=== PATIENT | male | born 1965 | race American Indian/Alaskan Native ===

== ENCOUNTER 2019-05-14 10:20 | Emergency (ER) | payer SELFPAY ==
--- NOTE | 2019-05-14 11:33 | Emergency Department Report ---
Blank Doc - Documentation Documentation: 54-year-old male that presents with left sided chest pain and SOB. This initial assessment/diagnostic orders/clinical plan/treatment(s) is/are subject to change based on patient's health status, clinical progression and re- assessment by fellow clinical providers in the ED. Further treatment and workup at subsequent clinical providers discretion. Patient/guardians urged not to elope from the ED as their condition may be serious if not clinically assessed and managed. Initial orders include: 1- Patient sent to MAIN ED for further evaluation and treatment 2- labs 3- EKG 4- CXR
--- NOTE | 2019-05-14 11:57 | XRay Report ---
CHEST 2 VIEWS INDICATION / CLINICAL INFORMATION: Chest Pain. COMPARISON: None available. FINDINGS: SUPPORT DEVICES: None. HEART / MEDIASTINUM: No significant abnormality. LUNGS / PLEURA: No significant pulmonary or pleural abnormality. .No pneumothorax. ADDITIONAL FINDINGS: No significant additional findings. IMPRESSION: 1. No acute findings. Signer Name: Brodie Aparicio MD Signed: 05/14/2019 11:53 AM Workstation Name: [id number]
[2019-05-14 12:14] LABS: Basophils % (Auto) 0.6 % (0.0-1.8); Eosinophils # (Auto) 0.1 K/mm3 (0.0-0.4); Eosinophils % (Auto) 2.8 % (0.0-4.3); Hematocrit 38.7 % (35.5-45.6); Hemoglobin 13.2 gm/dl (11.8-15.2); Lymphocytes # (Auto) 1.5 K/mm3 (1.2-5.4); Lymphocytes % (Auto) 30.5 % (13.4-35.0); Mean Corpuscular HGB Conc 34 % (32-34); Mean Corpuscular Volume 99 fl (84-94); Monocytes # (Auto) 0.4 K/mm3 (0.0-0.8); Platelet Count 160 K/mm3 (140-440); Red Cell Distribution Width 12.9 % (13.2-15.2)
[2019-05-14 12:21] LABS: INR 1.08 (0.87-1.13)
[2019-05-14 12:22] LABS: Partial Thromboplastin Time 24.9 Sec. (24.2-36.6)
[2019-05-14 12:37] LABS: Alanine Aminotransferase 44 units/L (7-56); Albumin 3.8 g/dL (3.9-5); BUN/Creatinine Ratio 13; Blood Urea Nitrogen 14 mg/dL (9-20); Calcium 9.2 mg/dL (8.4-10.2); Hemolysis Index 50
--- NOTE | 2019-05-14 13:11 | Emergency Department Report ---
ED General Adult HPI - General Chief complaint: Chest Pain Stated complaint: CHEST PAIN/WEAK/PAIN Time Seen by Provider: 05/14/19 11:32 Source: patient Mode of arrival: Ambulatory Limitations: No Limitations - History of Present Illness Initial comments: The patient presents to the emergency department with a chief complaint continuous chest pain since Tuesday. Patient states the chest pain is located underneath his breast bone and on the left side of his chest. Patient states he works at a [employer] facility and frequently gets chest pain. Patient denies abdominal pain or shortness of breath. -: Sudden Location: chest Radiation: non-radiation Severity scale (0 -10): 7 Quality: sharp Consistency: constant Improves with: none Worsens with: other (worse with deep breaths.) Associated Symptoms: denies other symptoms Treatments Prior to Arrival: none - Related Data Previous Rx's Medication Instructions Recorded Last Taken Type ALBUTEROL Inhaler (OR & NICU) 2 puff IH Q4HR PRN #1 inhalation 05/14/19 Unknown Rx [ProAir HFA Inhaler] Naproxen [Naprosyn] 500 mg PO BID #20 tablet 05/14/19 Unknown Rx Naproxen [Naprosyn] 500 mg PO BID PRN #20 tablet 05/14/19 Unknown Rx Allergies Allergy/AdvReac Type Severity Reaction Status Date / Time No Known Allergies Allergy Unverified 05/14/19 11:34 ED Review of Systems ROS: Stated complaint: CHEST PAIN/WEAK/PAIN Other details as noted in HPI Comment: All other systems reviewed and negative Constitutional: denies: chills, fever Eyes: denies: eye pain, eye discharge, vision change ENT: denies: ear pain, throat pain Respiratory: denies: cough, shortness of breath, wheezing Cardiovascular: chest pain. denies: palpitations Endocrine: no symptoms reported Gastrointestinal: denies: abdominal pain, nausea, diarrhea Genitourinary: denies: urgency, dysuria Musculoskeletal: denies: back pain, joint swelling, arthralgia Skin: denies: rash, lesions Neurological: denies: headache, weakness, paresthesias Psychiatric: denies: anxiety, depression Hematological/Lymphatic: denies: easy bleeding, easy bruising ED Past Medical Hx - Past Medical History Previous Medical History?: No - Surgical History Past Surgical History?: No - Social History Smoking Status: Current Every Day Smoker Substance Use Type: Alcohol, Marijuana - Medications Home Medications: Home Medications Medication Instructions Recorded Confirmed Last Taken Type ALBUTEROL Inhaler (OR & NICU) 2 puff IH Q4HR PRN #1 inhalation 05/14/19 Unknown Rx [ProAir HFA Inhaler] Naproxen [Naprosyn] 500 mg PO BID #20 tablet 05/14/19 Unknown Rx Naproxen [Naprosyn] 500 mg PO BID PRN #20 tablet 05/14/19 Unknown Rx ED Physical Exam - General Limitations: No Limitations General appearance: alert, in no apparent distress - Head Head exam: Present: atraumatic, normocephalic - Eye Eye exam: Present: normal appearance, PERRL, EOMI - ENT ENT exam: Present: mucous membranes moist - Neck Neck exam: Present: normal inspection - Respiratory Respiratory exam: Present: normal lung sounds bilaterally, chest wall tenderness. Absent: respiratory distress - Cardiovascular Cardiovascular Exam: Present: regular rate, normal rhythm. Absent: systolic murmur, diastolic murmur, rubs, gallop - GI/Abdominal GI/Abdominal exam: Present: soft, normal bowel sounds. Absent: distended, tenderness - Rectal Rectal exam: Present: deferred - Extremities Exam Extremities exam: Present: normal inspection - Back Exam Back exam: Present: normal inspection - Neurological Exam Neurological exam: Present: alert, oriented X3 - Psychiatric Psychiatric exam: Present: normal affect, normal mood - Skin Skin exam: Present: warm, dry, intact, normal color. Absent: rash ED Course Vital Signs 05/14/19 05/14/19 05/14/19 11:32 12:05 12:21 Temperature 98.3 F 98.3 F Pulse Rate 89 72 80 Respiratory 18 21 21 Rate Blood Pressure 115/79 113/90 Blood Pressure 126/82 [Left] O2 Sat by Pulse 100 98 99 Oximetry 05/14/19 05/14/19 05/14/19 12:41 13:00 13:21 Temperature Pulse Rate 79 74 88 Respiratory 18 13 12 Rate Blood Pressure 123/88 117/85 112/78 Blood Pressure [Left] O2 Sat by Pulse 98 98 98 Oximetry 05/14/19 05/14/19 13:41 14:00 Temperature Pulse Rate 73 66 Respiratory 17 15 Rate Blood Pressure 107/78 107/80 Blood Pressure [Left] O2 Sat by Pulse 98 98 Oximetry ED Medical Decision Making - Lab Data Result diagrams: 05/14/19 12:00 05/14/19 12:00 Lab Results 05/14/19 05/14/19 05/14/19 Range/Units 12:00 12:00 12:00 WBC 4.9 (4.5-11.0) K/mm3 RBC 3.90 (3.65-5.03) M/mm3 Hgb 13.2 (11.8-15.2) gm/dl Hct 38.7 (35.5-45.6) % MCV 99 H (84-94) fl MCH 34 H (28-32) pg MCHC 34 (32-34) % RDW 12.9 L (13.2-15.2) % Plt Count 160 (140-440) K/mm3 Lymph % (Auto) 30.5 (13.4-35.0) % [place] % (Auto) 9.0 H (0.0-7.3) % Eos % (Auto) 2.8 (0.0-4.3) % Baso % (Auto) 0.6 (0.0-1.8) % Lymph # 1.5 (1.2-5.4) K/mm3 [place] # 0.4 (0.0-0.8) K/mm3 Eos # 0.1 (0.0-0.4) K/mm3 Baso # 0.0 (0.0-0.1) K/mm3 Seg Neutrophils % 57.1 (40.0-70.0) % Seg Neutrophils # 2.8 (1.8-7.7) K/mm3 PT 13.9 (12.2-14.9) Sec. INR 1.08 (0.87-1.13) APTT 24.9 (24.2-36.6) Sec. D-Dimer (0-234) ng/mlDDU Sodium 138 (137-145) mmol/L Potassium 4.6 (3.6-5.0) mmol/L Chloride 102.8 (98-107) mmol/L Carbon Dioxide 24 (22-30) mmol/L Anion Gap 16 mmol/L BUN 14 (9-20) mg/dL Creatinine 1.1 (0.8-1.5) mg/dL Estimated GFR > 60 ml/min BUN/Creatinine Ratio 13 % Glucose 96 (75-100) mg/dL Calcium 9.2 (8.4-10.2) mg/dL Total Bilirubin 0.40 (0.1-1.2) mg/dL AST 45 H (5-40) units/L ALT 44 (7-56) units/L Alkaline Phosphatase 92 (35-129) units/L Troponin T < 0.010 (0.00-0.029) ng/mL Total Protein 7.4 (6.3-8.2) g/dL Albumin 3.8 L (3.9-5) g/dL Albumin/Globulin Ratio 1.1 % 05/14/19 Range/Units 12:00 WBC (4.5-11.0) K/mm3 RBC (3.65-5.03) M/mm3 Hgb (11.8-15.2) gm/dl Hct (35.5-45.6) % MCV (84-94) fl MCH (28-32) pg MCHC (32-34) % RDW (13.2-15.2) % Plt Count (140-440) K/mm3 Lymph % (Auto) (13.4-35.0) % [place] % (Auto) (0.0-7.3) % Eos % (Auto) (0.0-4.3) % Baso % (Auto) (0.0-1.8) % Lymph # (1.2-5.4) K/mm3 [place] # (0.0-0.8) K/mm3 Eos # (0.0-0.4) K/mm3 Baso # (0.0-0.1) K/mm3 Seg Neutrophils % (40.0-70.0) % Seg Neutrophils # (1.8-7.7) K/mm3 PT (12.2-14.9) Sec. INR (0.87-1.13) APTT (24.2-36.6) Sec. D-Dimer < 135 (0-234) ng/mlDDU Sodium (137-145) mmol/L Potassium (3.6-5.0) mmol/L Chloride (98-107) mmol/L Carbon Dioxide (22-30) mmol/L Anion Gap mmol/L BUN (9-20) mg/dL Creatinine (0.8-1.5) mg/dL Estimated GFR ml/min BUN/Creatinine Ratio % Glucose (75-100) mg/dL Calcium (8.4-10.2) mg/dL Total Bilirubin (0.1-1.2) mg/dL AST (5-40) units/L ALT (7-56) units/L Alkaline Phosphatase (35-129) units/L Troponin T (0.00-0.029) ng/mL Total Protein (6.3-8.2) g/dL Albumin (3.9-5) g/dL Albumin/Globulin Ratio % - EKG Data -: EKG Interpreted by Me EKG shows normal: sinus rhythm Rate: normal - Radiology Data Radiology results: report reviewed - Medical Decision Making Results discussed with patient Critical care attestation.: If time is entered above; I have spent that time in minutes in the direct care of this critically ill patient, excluding procedure time. ED Disposition Clinical Impression: Pleurisy, Chest pain, non-cardiac Disposition: DC-01 TO HOME OR SELFCARE Is pt being admited?: No Does the pt Need Aspirin: No Condition: Stable Instructions: Chest Pain (ED), Pleurisy (ED) Additional Instructions: return if worse Referrals: ESSENCE MICHELE MD [Primary Care Provider] - 3-5 Days [facility] [Provider Group] - 3-5 Days [facility] [Provider Group] - 3-5 Days Forms: Work/School Release Form(ED) Time of Disposition: 14:40
[2019-05-14 15:16] VITALS: BP 119/83
== END 2019-05-14 15:07 | disposition home or self-care (01) ==
LOC: ED 10:20
DX: R07.89 Other chest pain (principal); F17.200 Nicotine dependence, unspecified, uncomplicated; F10.10 Alcohol abuse, uncomplicated; F12.10 Cannabis abuse, uncomplicated; Z79.899 Other long term (current) drug therapy
CPT/HCPCS: 36415; 71046; 80053; 84484; 85025; 85379; 85610; 85730; 93005; 93010

== ENCOUNTER 2019-08-15 10:14 | Emergency (ER) | payer SELFPAY ==
[2019-08-15 10:45] VITALS: BP 107/76
[2019-08-15] MEDS ORDERED: ONDANSETRON 4 MG/2 ML INJ IV ONE (13:48)
[2019-08-15] MEDS ORDERED: SODIUM CHLORIDE 0.9% 1000 ML 1,000 ML IV ONE (13:48)
[2019-08-15] MEDS ORDERED: LIDOCAINE VISCOUS 2% 15 ML ORAL LIQD PO ONE (13:49)
[2019-08-15] MEDS ORDERED: ALUM-MAG HYDROXIDE-SIMETHICONE 200-200-20MG/5ML ORAL LIQD 30 ML PO ONE (13:49)
--- NOTE | 2019-08-15 13:50 | Emergency Department Report ---
ED Abdominal Pain HPI - General Chief Complaint: Abdominal Pain Stated Complaint: ABD PAIN/LIGHT HEADED/N/V Time Seen by Provider: 08/15/19 13:39 Source: patient Mode of arrival: Ambulatory Limitations: No Limitations - History of Present Illness Initial Comments: This is a pleasant 54-year-old male presents the emergency department with chief complaint of 2 days of nausea, vomiting, diarrhea with associated mucousy green stool that started yesterday. He reports the pain is in the epigastrium. Pain is a 6 out of 10 described as burning and cramping. No radiating pain. He reports he has had similar pain in the past and was treated for acid reflux with Carafate. He denies any associated chest pain, shortness of breath, hemoptysis, melena, hematochezia, fever, chills, night sweats, headache, dizziness, blurry vision or any other associated symptoms. He denies any known past medical history, current medication use or known allergies to medications. - Related Data Previous Rx's Medication Instructions Recorded Last Taken Type Albuterol INH(or & Nicu Only) 2 puff IH Q4HR PRN #1 inhalation 05/14/19 Unknown Rx [ProAir HFA Inhaler] Naproxen [Naprosyn] 500 mg PO BID #20 tablet 05/14/19 Unknown Rx Naproxen [Naprosyn] 500 mg PO BID PRN #20 tablet 05/14/19 Unknown Rx Omeprazole 20 mg PO DAILY #30 tab. 08/15/19 Unknown Rx Ondansetron [Zofran Odt] 4 mg PO Q8HR #21 tab.tho 08/15/19 Unknown Rx Promethazine /Codeine 5 ml PO Q6H PRN #60 udc 08/15/19 Unknown Rx [Phenergan/Codeine 6.25-10 mg/5 ml] Sucralfate [Carafate] 1 gm PO ACHS #120 tablet 08/15/19 Unknown Rx Allergies Allergy/AdvReac Type Severity Reaction Status Date / Time No Known Allergies Allergy Unverified 05/14/19 11:34 ED Review of Systems ROS: Stated complaint: ABD PAIN/LIGHT HEADED/N/V Other details as noted in HPI Comment: All other systems reviewed and negative Constitutional: denies: chills, fever Eyes: denies: eye pain, eye discharge, vision change ENT: denies: ear pain, throat pain Respiratory: denies: cough, shortness of breath, wheezing Cardiovascular: denies: chest pain, palpitations Endocrine: no symptoms reported Gastrointestinal: as per HPI, abdominal pain, nausea, vomiting, diarrhea Genitourinary: denies: urgency, dysuria Musculoskeletal: denies: back pain, joint swelling, arthralgia Skin: denies: rash, lesions Neurological: denies: headache, weakness, paresthesias Psychiatric: denies: anxiety, depression Hematological/Lymphatic: denies: easy bleeding, easy bruising ED Past Medical Hx - Past Medical History Previous Medical History?: No - Surgical History Past Surgical History?: No - Social History Smoking Status: Current Every Day Smoker Substance Use Type: Alcohol, Marijuana - Medications Home Medications: Home Medications Medication Instructions Recorded Confirmed Last Taken Type Albuterol INH(or & Nicu Only) 2 puff IH Q4HR PRN #1 inhalation 05/14/19 Unknown Rx [ProAir HFA Inhaler] Naproxen [Naprosyn] 500 mg PO BID #20 tablet 05/14/19 Unknown Rx Naproxen [Naprosyn] 500 mg PO BID PRN #20 tablet 05/14/19 Unknown Rx Omeprazole 20 mg PO DAILY #30 tab.rap.dr 08/15/19 Unknown Rx Ondansetron [Zofran Odt] 4 mg PO Q8HR #21 tab.rapdis 08/15/19 Unknown Rx Promethazine /Codeine 5 ml PO Q6H PRN #60 udc 08/15/19 Unknown Rx [Phenergan/Codeine 6.25-10 mg/5 ml] Sucralfate [Carafate] 1 gm PO ACHS #120 tablet 08/15/19 Unknown Rx ED Physical Exam - General Limitations: No Limitations General appearance: alert, in no apparent distress - Head Head exam: Present: atraumatic, normocephalic - Eye Eye exam: Present: normal appearance - ENT ENT exam: Present: normal exam, normal orophraynx, mucous membranes moist - Neck Neck exam: Present: normal inspection, full ROM. Absent: tenderness, meningismus - Respiratory Respiratory exam: Present: normal lung sounds bilaterally. Absent: respiratory distress, wheezes, rales, rhonchi, stridor - Cardiovascular Cardiovascular Exam: Present: regular rate, normal rhythm, normal heart sounds. Absent: systolic murmur, diastolic murmur, rubs, gallop - GI/Abdominal GI/Abdominal exam: Present: soft, tenderness (Mild epigastric tenderness to palpation, negative Suero sign), normal bowel sounds. Absent: distended, guarding, rebound, rigid - Rectal Rectal exam: Present: deferred - Extremities Exam Extremities exam: Present: normal inspection, full ROM, normal capillary refill. Absent: tenderness, calf tenderness - Back Exam Back exam: Present: normal inspection, full ROM. Absent: tenderness, CVA tenderness (R), CVA tenderness (L) - Neurological Exam Neurological exam: Present: alert, oriented X3 - Psychiatric Psychiatric exam: Present: normal affect, normal mood - Skin Skin exam: Present: warm, dry, intact, normal color. Absent: rash ED Course Vital Signs 08/15/19 10:44 Temperature 97.8 F Pulse Rate 71 Respiratory 16 Rate Blood Pressure 107/76 [Right] O2 Sat by Pulse 99 Oximetry - Reevaluation(s) Reevaluation #1: 08/15/19 15:58 Patient feels much better. Abdominal pain has resolved. Repeat exam shows no tenderness to palpation, guarding or rigidity. Patient educated about importance of avoiding NSAIDs and alcohol and does report that due to his recent cough and cold he has been taking a lot more anti-inflammatories than usual. He does report he had a democrat on Tuesday and drank a lot of alcohol. 08/15/19 15:58 ED Medical Decision Making - Lab Data Result diagrams: 08/15/19 14:22 08/15/19 15:06 Lab Results 08/15/19 08/15/19 08/15/19 Range/Units 14:22 14:22 15:06 WBC 4.3 L (4.5-11.0) K/mm3 RBC 4.00 (3.65-5.03) M/mm3 Hgb 13.6 (11.8-15.2) gm/dl Hct 40.3 (35.5-45.6) % MCV 101 H (84-94) fl MCH 34 H (28-32) pg MCHC 34 (32-34) % RDW 12.7 L (13.2-15.2) % Plt Count 196 (140-440) K/mm3 Add Manual Diff Complete Total Counted 100 Seg Neuts % (Manual) 51.0 (40.0-70.0) % Band Neutrophils % 0 % Lymphocytes % (Manual) 36.0 H (13.4-35.0) % Reactive Lymphs % (Man) 0 % Monocytes % (Manual) 9.0 H (0.0-7.3) % Eosinophils % (Manual) 1.0 (0.0-4.3) % Basophils % (Manual) 2.0 H (0.0-1.8) % Metamyelocytes % 1.0 % Myelocytes % 0 % Promyelocytes % 0 % Blast Cells % 0 % Nucleated RBC % Not Reportable Seg Neutrophils # Man 2.2 (1.8-7.7) K/mm3 Band Neutrophils # 0.0 K/mm3 Lymphocytes # (Manual) 1.5 (1.2-5.4) K/mm3 Abs React Lymphs (Man) 0.0 K/mm3 Monocytes # (Manual) 0.4 (0.0-0.8) K/mm3 Eosinophils # (Manual) 0.0 (0.0-0.4) K/mm3 Basophils # (Manual) 0.1 (0.0-0.1) K/mm3 Metamyelocytes # 0.0 K/mm3 Myelocytes # 0.0 K/mm3 Promyelocytes # 0.0 K/mm3 Blast Cells # 0.0 K/mm3 WBC Morphology Not Reportable Hypersegmented Neuts Not Reportable Hyposegmented Neuts Not Reportable Hypogranular Neuts Not Reportable Smudge Cells Not Reportable Toxic Granulation Not Reportable Toxic Vacuolation Not Reportable Dohle Bodies Not Reportable Pelger-Huet Anomaly Not Reportable Dusty Rods Not Reportable Platelet Estimate Consistent w auto Clumped Platelets Not Reportable Plt Clumps, EDTA Not Reportable Large Platelets Few Giant Platelets Not Reportable Platelet Satelliting Not Reportable Plt Morphology Comment Not Reportable RBC Morphology Not Reportable Dimorphic RBCs Not Reportable Polychromasia Rare Hypochromasia Not Reportable Poikilocytosis Not Reportable Anisocytosis Not Reportable Microcytosis Not Reportable Macrocytosis Few Spherocytes Not Reportable Pappenheimer Bodies Not Reportable Sickle Cells Not Reportable Target Cells Not Reportable Tear Drop Cells Not Reportable Ovalocytes Not Reportable Helmet Cells Not Reportable Lamar-[place] Bodies Not Reportable [place] Rings Not Reportable Galvin Cells Not Reportable Bite Cells Not Reportable Crenated Cell Not Reportable Elliptocytes Not Reportable Acanthocytes (Spur) Not Reportable Rouleaux Not Reportable Hemoglobin C Crystals Not Reportable Schistocytes Not Reportable Malaria parasites Not Reportable Juan Carlos Bodies Not Reportable Hem Pathologist Commnt No Sodium 137 (137-145) mmol/L Potassium 5.3 H 5.2 H (3.6-5.0) mmol/L Chloride 100.3 (98-107) mmol/L Carbon Dioxide 26 (22-30) mmol/L Anion Gap 16 mmol/L BUN 23 H (9-20) mg/dL Creatinine 1.0 (0.8-1.5) mg/dL Estimated GFR > 60 ml/min BUN/Creatinine Ratio 23 % Glucose 84 (75-100) mg/dL Calcium 9.5 (8.4-10.2) mg/dL Total Bilirubin 0.40 (0.1-1.2) mg/dL Direct Bilirubin < 0.2 (0-0.2) mg/dL Indirect Bilirubin 0.2 mg/dL AST 49 H (5-40) units/L ALT 37 (7-56) units/L Alkaline Phosphatase 94 (35-129) units/L Total Protein 7.4 (6.3-8.2) g/dL Albumin 4.2 (3.9-5) g/dL Albumin/Globulin Ratio 1.3 % Lipase 117 H (13-60) units/L - Radiology Data Radiology results: report reviewed XRay Report Signed Patient: DEMIAN MALIK MR#: [id number] : 1965 Acct:[id number] Age/Sex: 54 / M ADM Date: 08/15/19 Loc: ED Attending Dr: Ordering Physician: WICHO RICO Date of Service: 08/15/19 Procedure(s): XR chest routine 2V Accession Number(s): [id number] cc: WICHO RICO Fluoro Time In Minutes: CHEST 2 VIEWS INDICATION: cough, epigastric pain. COMPARISON: 05/14/2019 FINDINGS: Support devices: None. Heart: Within normal limits. Lungs/pleura: No acute air space or interstitial disease. No pneumothorax. Additional findings: None. IMPRESSION: Normal chest x-ray Signer Name: Buster Guzman Jr, MD Signed: 08/15/2019 2:12 PM Workstation Name: [id number] Transcribed By: TTR Dictated By: BUSTER GUZMAN JR, MD Electronically Authenticated By: BUSTER GUZMAN JR, MD Signed Date/Time: 08/15/19 1412 - Medical Decision Making Patient is nontoxic in no acute distress. Vitals are stable. Labs returned showing a mild elevation of the AST and lipase consistent with mild early pancreatitis. Patient reports he had been drinking recently and his labs reflect this. His potassium was initially elevated however suspected hemolysis repeated it it was slightly decreased. His kidney function was normal. He was given a GI cocktail, IV fluids and antiemetics and felt much better. He is tolerating p.o. fluids well. He want to go home. Recommended avoidance of a lcohol, NSAIDs and will treat his symptoms of reflux with Carafate and omeprazole. GI referral given. Recommended he return to [facility] department any changing worsening symptoms. He verbalized understanding of the diagnosis, treatment plan and follow-up instructions all his questions were answered. - Differential Diagnosis pancreatitis, cholecystitis, GERD Critical care attestation.: If time is entered above; I have spent that time in minutes in the direct care of this critically ill patient, excluding procedure time. ED Disposition Clinical Impression: Epigastric abdominal pain Disposition: - TO HOME OR SELFCARE Is pt being admited?: No Condition: Stable Instructions: Diet for Ulcers and Gastritis (ED) Prescriptions: Sucralfate [Carafate] 1 gm PO ACHS #120 tablet Omeprazole 20 mg PO DAILY #30 tab Promethazine /Codeine [Phenergan/Codeine 6.25-10 mg/5 ml] 5 ml PO Q6H PRN #60 udc PRN Reason: cough Ondansetron [Zofran Odt] 4 mg PO Q8HR #21 tabmilton Referrals: PRIMARY CARE, [Primary Care Provider] - 3-5 Days [facility] [Provider Group] - 3-5 Days Forms: Work/School Release Form(ED) Time of Disposition: 16:16
--- NOTE | 2019-08-15 14:16 | XRay Report ---
CHEST 2 VIEWS INDICATION: cough, epigastric pain. COMPARISON: 05/14/2019 FINDINGS: Support devices: None. Heart: Within normal limits. Lungs/pleura: No acute air space or interstitial disease. No pneumothorax. Additional findings: None. IMPRESSION: Normal chest x-ray Signer Name: Buster Guzman Jr, MD Signed: 08/15/2019 2:12 PM Workstation Name: [id number]
[2019-08-15 14:46] LABS: Hematocrit 40.3 % (35.5-45.6); Hemoglobin 13.6 gm/dl (11.8-15.2); Mean Corpuscular HGB Conc 34 % (32-34); Mean Corpuscular Volume 101 fl (84-94); Platelet Count 196 K/mm3 (140-440); Red Cell Distribution Width 12.7 % (13.2-15.2)
[2019-08-15 15:00] LABS: Alanine Aminotransferase 37 units/L (7-56); Albumin 4.2 g/dL (3.9-5); BUN/Creatinine Ratio 23; Blood Urea Nitrogen 23 mg/dL (9-20); Calcium 9.5 mg/dL (8.4-10.2); Hemolysis Index 12
[2019-08-15 15:09] LABS: Bilirubin,Direct < 0.2 mg/dL (0-0.2)
[2019-08-15 15:35] LABS: Total Cells Counted 100
[2019-08-15 15:37] LABS: Large Platelets Few; Macrocytosis Few
[2019-08-15 15:38] LABS: Platelet Estimate Consistent w Auto
[2019-08-15 16:52] LABS: Bilirubin,Urine NEG (Negative); Blood,Urine NEG (Negative); Color,Urine Straw (Yellow); Protein,Urine <15 mg/dL mg/dL (Negative); Urobilinogen,Urine < 2.0 mg/dL (<2.0); WBC,Urine < 1.0 /HPF (0.0-6.0)
== END 2019-08-15 17:40 | disposition home or self-care (01) ==
LOC: ED 10:14
DX: R10.13 Epigastric pain (principal); R42 Dizziness and giddiness; F17.200 Nicotine dependence, unspecified, uncomplicated; F12.90 Cannabis use, unspecified, uncomplicated; Z79.899 Other long term (current) drug therapy
CPT/HCPCS: 36415; 71046; 80048; 80076; 81001; 83690; 84132; 85007; 85025; 96361; 96374; 99284; J2405; J7030